=== PATIENT | male | born 1935 | race Caucasian/White ===

== ENCOUNTER 2024-11-11 15:08 | Outpatient (AMB) | payer MEDICARE, SELFPAY ==
--- NOTE | 2024-11-11 15:12 | A.OFFVIS_ITS ---
Vital Signs 11/11/24 15:14 Height 5 ft 10 in Weight 150 lb BMI 21.5 BP 97/52 L Blood Pressure Location Lt brachial Position Sitting Pulse 76 Intake Visit Reasons: gerd Intake Note: Austin presents in the office as a follow up for GERD. CC: Has GERD and issue with food getting stuck in his esophagus. He started drinking more water with meals and sometimes that helps. Always when he is eating. Hydraulic Riveter Required: No Allergies lobster Allergy (Intermediate, Verified 11/11/24 15:17) Unknown Medication List - Last Reconciled 11/11/24 by Donna Becerra CNP apixaban (Eliquis) 5 mg PO BID B-complex with vitamin C 1 tab PO DAILY turmeric mg PO vitamins A,C,M-uvpt-piedzk 4,296 mcg-226 mg-90 mg (PreserVision AREDS) 1 cap PO BID HPI HPI gerd: Details: Patient is a 88-year-old male with PMH of atrial fibrillation on Eliquis, osteoporosis, PVD and prostate cancer s/p prostatectomy 10/2004. Referred by PCP for further evaluation of GERD and dysphagia. Patient is accompanied by his Arelis. He reports chronic acid reflux for several years, worse with large evening meals and when lying down. Symptoms are described as a burning and gurgling up sensation, sometimes relieved by bitters and seltzer water. There is occasional regurgitation of solids during meals and rare nausea or vomiting only when food is obstructed. Dysphagia to solids began a couple of years ago?patient reports a sensation of food stuck , more likely with dry or large boluses of food, and improved with concurrent water intake. Small volume vomiting is described as coming from the stomach, not forceful. Symptom frequency is intermittent and episodic, without a clear trigger, and not always meal-related. Patient notes that physical maneuvers, such as arm stretching as recommended by physical therapy, seem to help passage. Also describes paroxysmal electrical chest sensation, not painful but abnormal, lasting approximately 20 minutes and resolved with belching; donna ramos evaluated in the emergency department and by cardiology with negative workup, last occurrence was in the winter or early spring of the previous year. Patient denies unintentional weight change; weight is stable, ranging from 153 to 160 pounds, with no significant recent loss. Denies blood in stool, black stools, chronic abdominal pain, or persistent nausea or vomiting. Reports recent fall with facial injury, no loss of consciousness, evaluated in urgent care and emergency department, on anticoagulation. No new neurologic or constitutional symptoms reported Social History - Diet: No special restrictions reported. Eats eggs, bread; tends to eat snacks or meals late at night, sometimes large meals. - family hx as below [facility] Medical History (Updated 11/11/24 @ 17:03 by Donna Becerra CNP) Acid reflux Dysphagia Surgical History History of esophagogastroduodenoscopy (EGD) Hx of colonoscopy Hx of tonsillectomy Hx of prostatectomy Family History Mother Cancer Father CHF (congestive heart failure) Brother Atrial fibrillation Social History Household Members: Family Alcohol intake: current Alcohol intake frequency: a few times a month Alcohol type: wine Patient Tobacco Use Status: Former Tobacco user Tobacco use type: Cigarette Substance Use Type: Marijuana Review of Systems Const Reports as per HPI ENT Reports as per HPI Card Reports as per HPI Resp Reports as per HPI GI Reports as per HPI Reports as per HPI Physical Exam Vital Signs: Last Vital Signs Pulse 76 11/11/24 15:14 BP 97/52 L 11/11/24 15:14 BMI result Body Mass Index 21.5 HEENT Other: mild edema with a dried, crusted blood-tinged abrasion on the lower lip Assessment & Plan Assessment & Plan (1) Dysphagia: Code(s): R13.10 - Dysphagia, unspecified Category: Medical Plan: Chronic reflux, intermittent dysphagia for solids, and rare regurgitation raise concern for structural or inflammatory esophageal disease. Additional Tests: - Order upper GI series to evaluate for anatomical abnormality, narrowing, obstruction - Schedule upper endoscopy for direct visualization, assessment for esophagitis, stricture, mass, and obtain biopsy as indicated - Pre-procedure cardiac clearance prior to endoscopy (patient on anticoagulation) Medications: - Famotidine (Pepcid) 20 mg by mouth as needed, prescription sent to local pharmacy; can use [id number] Education on GERD prevention : -Advised against heavy meals; encouraged small, frequent meals instead of large ones. - Instructed to remain upright for 2?3 hours after eating. - Advised to avoid late-night meals, spicy foods, caffeine, alcohol, known dietary triggers, and tight-fitting clothing. - Emphasis placed on gradual implementation of lifestyle changes to improve adherence and symptom control. (2) Acid reflux: Code(s): K21.9 - Gastro-esophageal reflux disease without esophagitis Category: Medical Qualifiers: Esophagitis presence: esophagitis presence not specified Qualified Code(s): K21.9 - Gastro-esophageal reflux disease without esophagitis Plan: as above Plan As for the Paroxysmal Electrical Chest Sensation reported, likely gastrointestinal-related event (e.g., esophageal spasm or air). Symptoms resolved with belching; cardiac etiology ruled out via emergency department and recent cardiology workup Continue with dietary and behavioral changes as above. Observe for recurrence or pattern. Follow-Up: Monitor; advise patient to seek evaluation if symptoms recur, worsen, or are associated with concerning features (chest pain, shortness of breath, syncope). RTC in 6 weeks (after imaging) or sooner as needed Time: I spent a total of 45 minutes on the date of encounter which includes: Preparing to see the patient (reviewed previous documentation, test results and medical history) Performing a medically appropriate exam and/or evaluation Ordering medications, tests, and procedures Documenting clinical information in the health record Orders: Orders FL upper GI small bowel Today K21.9 - Gastro-esophageal reflux disease without esophagitis, R13.10 - Dysphagia, unspecified Medications: New famotidine Take one tablet daily as needed for acid reflux 20 mg PO DAILY PRN 90 tabs 1RF GERD Coding Level of Care Code New Pt New Pt Level 5 (87481) Patient Type New Diagnoses Dysphagia R13.10 Gastroesophageal reflux disease, unspecified whether esophagitis present K21.9 Esophagitis presence: esophagitis presence not specified
[2024-11-11 15:14] VITALS: BP 97/52; PULSE 76; BMI 21.5
== END 2024-11-11 15:56 | disposition home or self-care (01) ==
LOC: HO.HGI 15:08
PROVIDERS: PCP Nurse Practitioner Family; Visit Provider Nurse Practitioner Family
DX: R13.10 Dysphagia, unspecified (principal); K21.9 Gastro-esophageal reflux disease without esophagitis
CPT/HCPCS: 99204

== ENCOUNTER → 2024-11-11 15:08 | Outpatient (BNVA) | payer MEDICARE, SELFPAY | PROVIDERS: PCP Nurse Practitioner Family; Visit Provider Nurse Practitioner Family | DX: K21.9 Gastro-esophageal reflux disease without esophagitis (principal) | CPT/HCPCS: 99202 ==

== ENCOUNTER 2024-12-02 08:01 | Outpatient (REF) | payer MEDICARE, SELFPAY ==
--- NOTE | ~2024-12-02 | FL_ITS ---
EXAMINATION: XR FLUOROSCOPY UPPER GI WITH AIR AND BARIUM SWALLOW CLINICAL INFORMATION: Dysphagia COMPARISON: None available. TECHNIQUE: Routine upper GI air contrast study was performed in upright and lying position. Patient was initially to 4 barium swallow, upper GI and small bowel follow-through. However patient not want small bowel follow-through is he had no complaints. FINDINGS: Lung oral administration of thick barium and effervescent granules is normal propagation of bolus from the oral cavity, pharynx, esophagus into stomach without any obstruction, narrowing or stricture. However there is a prominent cricoesophageal sphincter without obstruction. There is no extrinsic compression either. No laryngeal penetration or aspiration seen. Following oral administration of saltine crackers and thin barium there is normal propagation bolus from the oral cavity through the pharynx into esophagus. On oral administration thin saltine crackers coated with barium paste there is normal propagation of bolus from the oral cavity through the pharynx and esophagus. Thin barium was administered subsequently 2. Pulse the solid food into the stomach. There is incomplete distention of the GE junction. On placing patient supine and prone lying the course and caliber of the stomach, duodenal bulb and this CT is normal. There is a small sliding hiatal hernia with mild gastroesophageal reflux. 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 There is increased mucosal secretions in the stomach but no erosions or ulcerations seen. FLUOROSCOPY TIME: 2 minutes 11 seconds DOSE AREA PRODUCT: 36.21 uGy-m2 (microgray-meter squared) FL/FL upper GI w air w Ba Swallow IMPRESSION: Small sliding hiatal hernia with mild gastroesophageal reflux. Incomplete distention of the GE junction. No laryngeal penetration or aspiration. Decreased esophageal motility with solid food but no obstruction seen. Electronically signed by: Vance Roach MD 12/02/2024 03:25 PM EDT
== END 2024-12-02 08:02 | disposition home or self-care (01) ==
LOC: HO.XRAY 08:01
PROVIDERS: PCP Family Medicine; Visit Provider Nurse Practitioner Family
DX: R13.10 Dysphagia, unspecified (principal); K21.9 Gastro-esophageal reflux disease without esophagitis
CPT/HCPCS: 74246

== ENCOUNTER → 2024-12-02 08:03 | Outpatient (BNV) | payer MEDICARE, SELFPAY | PROVIDERS: PCP Family Medicine; Visit Provider Radiology Diagnostic Radiology | DX: K21.9 Gastro-esophageal reflux disease without esophagitis (principal) | CPT/HCPCS: 74246 ==

== ENCOUNTER 2024-12-24 12:35 | Outpatient (AMB) | payer MEDICARE, SELFPAY ==
--- NOTE | 2024-12-24 12:37 | MHC.OFFVIS ---
Vital Signs 12/24/24 12:41 Height 5 ft 10 in Weight 154 lb 5.177 oz BMI 22.1 BP 111/55 L Blood Pressure Location Lt brachial Position Sitting Pulse 84 Intake Visit Reasons: 6 wks f/u Gerd Intake Note: Austin presents in the office as a 6 week follow up for GERD. CC: States that he is having concerns of swallowing. Trimming Department Blocker Required: No Allergies lobster Allergy (Intermediate, Verified 12/24/24 12:42) Unknown HPI HPI 6 wks f/u Gerd: Details: Patient is a 88-year-old male with PMH of atrial fibrillation on Eliquis, osteoporosis, PVD and prostate cancers/p prostatectomy 10/2004. Patient is accompanied by his Arelis. Austin presents for follow-up of chronic reflux and dysphagia, with symptoms ongoing for years and most pronounced after large or late meals, particularly when lying down. The barium swallow study on December 02 revealed impaired expansion of the distal esophagus and a small sliding hiatal hernia. He reports recent improvement in swallowing and reflux symptoms through mindful eating, increased water intake with meals, and avoidance of large or late meals. He notes that burning and gurgling sensations have lessened, though occasional symptoms persist with dietary indiscretions, especially late-night eating. He has experimented with apple cider vinegar pills and bitters, which he feels provide some relief. Bread with certain toppings is identified as a trigger and is being avoided. Bowel habits are regular, with no constipation, diarrhea, or blood in stools reported. [facility] Medical History Acid reflux Dysphagia Surgical History History of esophagogastroduodenoscopy (EGD) Hx of colonoscopy Hx of tonsillectomy Hx of prostatectomy Family History Mother Cancer Father CHF (congestive heart failure) Brother Atrial fibrillation Social History Household Members: Family Alcohol intake: current Alcohol intake frequency: a few times a month Alcohol type: wine Patient Tobacco Use Status: Former Tobacco user Tobacco use type: Cigarette Substance Use Type: Marijuana Review of Systems Const Reports as per HPI ENT Reports as per HPI Card Reports as per HPI Resp Reports as per HPI GI Reports as per HPI Reports as per HPI Physical Exam Vital Signs: Last Vital Signs Pulse 84 12/24/24 12:41 BP 111/55 L 12/24/24 12:41 BMI result Body Mass Index 22.1 Const General: healthy appearing, no acute distress and well developed Nutritional Appearance: average body habitus Orientation/consciousness: patient oriented x3 HEENT Head: Yes normal to inspection, Yes normocephalic and Yes atraumatic Face and sinus: Yes normal facial exam Eyes General: appearance normal, both eyes and all related structures Neck Neck: Yes normal visual inspection Resp Effort & Inspection: normal respiratory effort, able to speak in complete sentences, no tracheal deviation and symmetric chest movement Cardio Jugular venous distension: no JVD Neuro General: patient oriented x3 Gait exam (Neuro): Normal gait present Psych Appearance: grossly normal Mental Status: mental status grossly normal Speech and movement: Normal speech and movement present Affect: normal affect Attitude: cooperative Thought process: Normal thought process present Thought content: Normal thought content present Insight: Good insight present (Psych) Judgement: Good judgement present (Psych) Results Reviewed Results Reviewed: Date of Service: 12/02/24 Procedure(s): FL upper GI w air w Ba Swallow Accession Number(s): [id number] cc: Marvin Atkins DO; Donna Becerra WATERWORKS OPERATOR~ EXAMINATION: XR FLUOROSCOPY UPPER GI WITH AIR AND BARIUM SWALLOW CLINICAL INFORMATION: Dysphagia COMPARISON: None available. TECHNIQUE: Routine upper GI air contrast study was performed in upright and lying position. Patient was initially to 4 barium swallow, upper GI and small bowel follow-through. However patient not want small bowel follow-through is he had no complaints. FINDINGS: Lung oral administration of thick barium and effervescent granules is normal propagation of bolus from the oral cavity, pharynx, esophagus into stomach without any obstruction, narrowing or stricture. However there is a prominent cricoesophageal sphincter without obstruction. There is no extrinsic compression either. No laryngeal penetration or aspiration seen. Following oral administration of saltine crackers and thin barium there is normal propagation bolus from the oral cavity through the pharynx into esophagus. On oral administration thin saltine crackers coated with barium paste there is normal propagation of bolus from the oral cavity through the pharynx and esophagus. Thin barium was administered subsequently 2. Pulse the solid food into the stomach. There is incomplete distention of the GE junction. On placing patient supine and prone lying the course and caliber of the stomach, duodenal bulb and this CT is normal. There is a small sliding hiatal hernia with mild gastroesophageal reflux. 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 There is increased mucosal secretions in the stomach but no erosions or ulcerations seen. FLUOROSCOPY TIME: 2 minutes 11 seconds DOSE AREA PRODUCT: 36.21 uGy-m2 (microgray-meter squared) FL/FL upper GI w air w Ba Swallow IMPRESSION: Small sliding hiatal hernia with mild gastroesophageal reflux. Incomplete distention of the GE junction. No laryngeal penetration or aspiration. Decreased esophageal motility with solid food but no obstruction seen. Assessment & Plan Assessment & Plan (1) Dysphagia: Code(s): R13.10 - Dysphagia, unspecified Category: Medical Qualifiers: Dysphagia type: esophageal phase Qualified Code(s): R13.19 - Other dysphagia Plan: Barium swallow shows impaired distal esophageal expansion, correlating with dysphagia. Symptoms improved with lifestyle changes but persist intermittently. EGD planned to assess for mucosal changes, inflammation, or malignancy, and to allow for possible balloon dilation if indicated. Education on risk of procedure. Awaiting cardiology clearance due to cardiac history and anticoagulation. Medications: -Famotidine 20mg PO daily recommended as initial acid suppression. -Omeprazole 20mg PO daily suggested if symptoms persist or for greater acid suppression. Education on GERD prevention : -Advised against heavy meals; encouraged small, frequent meals instead of large ones. - Instructed to remain upright for 2?3 hours after eating. - Advised to avoid late-night meals, spicy foods, caffeine, alcohol, known dietary triggers, and tight-fitting clothing. - Emphasis placed on gradual implementation of lifestyle changes to improve adherence and symptom control. (2) Acid reflux: Code(s): K21.9 - Gastro-esophageal reflux disease without esophagitis Category: Medical Qualifiers: Esophagitis presence: esophagitis presence not specified Qualified Code(s): K21.9 - Gastro-esophageal reflux disease without esophagitis Plan: Mild GERD secondary to small sliding hiatal hernia confirmed on 12/02/24 upper GI w air w Ba Swallow Additional Testing: EGD as above and managed hiatal hernia conservatively due to minimal size and intermittent symptoms. Medications:As above; famotidine or omeprazole based on symptom response. Lifestyle modifications as above Plan Follow-up after endoscopy or sooner as needed Time: I spent a total of 30 minutes on the date of encounter which includes: Preparing to see the patient (reviewed previous documentation, test results and medical history) Performing a medically appropriate exam and/or evaluation Ordering medications, tests, and procedures Documenting clinical information in the health record Medications: Changed From famotidine Take one tablet daily as needed for acid reflux 20 mg PO DAILY PRN 90 tabs 1RF GERD To famotidine Take one tablet daily for acid reflux 20 mg PO DAILY 90 tabs 1RF GERD Coding Level of Care Code Established Pt Est Pt Level 4 (15918) Patient Type Established Diagnoses Esophageal dysphagia R13.19 Dysphagia type: esophageal phase Gastroesophageal reflux disease, unspecified whether esophagitis present K21.9 Esophagitis presence: esophagitis presence not specified
--- OUTSIDE RECORDS SUMMARY | 2024-12-24 12:38 | XMS_ITS | Clinical Summary ---
Author Organization [facility] Address [address] [facility] [address] [place] [address] Phone Care Team Providers Care Aluminum Sheet Cutter Name Role Phone Angel Menchaca MD Unavailable Marvin Atkins DO Primary Care Provider Allergies No known active allergies Medications cyanocobalamin (VITAMIN B-12) 1000 MCG tablet Take 1 tablet by mouth daily. 11/30/19 16 Active CREATINE MONOHYDRATE ORAL as directed Orally A ctive Medication-Free Text Eye Vitamins Tablet, Sig: as directed Orally bid Activ e Medication-Free Text vitamin D 2,000 mg , Sig: as directed Active MAGNESIUM ORAL 1 capsule with a meal Orally Once a day Active latanoprost (XALATAN) 0.005 % ophthalmic solution Place 1 drop into each eye nightly. Active lutein 10 mg Tab [facility] withzeaxanthins 07/02/19 19 Active omega-3 fatty acids-fish oil 340-1,000 mg Cap Daily 07/02/19 19 Active ELIQUIS 5 mg tablet 2 (two) times a day. 2 09/10/19 19 Active furosemide (LASIX) 20 MG tablet Take 1 tablet (20 mg total) by mouth daily for 3 days. 3 tablet 04/14/20 22 Active Active Problems Problem Noted Date Diagnosed Date Visit for suture removal 09/10/2018 Assessment & Plan (09/10/2018 12:25 PM EDT): José Miguel presents for a suture removal-placed on 09/01/18. The # 1 suture was removed today (a running stitch). No bleeding noted. He was given wound care guidance. He will use vit E to decrease scaring. He will call if there is any other issues. He understands and agrees. Paroxysmal atrial fibrillation 07/02/2018 Assessment & Plan (09/10/2018 12:13 PM EDT): José Miguel has paroxysmal a fib and he is followed by his office agent. He is rate controlled. He is not taking the eliquis at this time but he will talk with his office agent about this. Monoclonal gammopathy 07/02/2018 Osteoporosis 07/02/2018 Assessment & Plan (06/08/2019 9:25 AM EST): This is an 83-year-old man with history of osteoporosis as early as 2006 who has not received therapy other than vitamin D and calcium supplementation. He has not had any fragility fractures. His risk factors for osteoporosis include age, tobacco use, and recently use of anticoagulants such as Eliquis. Possible history of osteoporosis it is unclear. There does not appear to be other risk factors. Review of his lab work shows that these are all within the reference range. I do not have a baseline PTH but is very unlikely that he has hyperparathyroidism since serum calcium levels are within the reference range but we can check a PTH level for baseline. He does not have a 24-hour urine calcium study done and he does take calcium supplements the question is how much and whether so getting absorbed. 24-hour urine calcium collection will tell us if he is having adequate calcium output and if he is having adequate calcium output that means that he most likely gets adequate calcium in his diet and supplements. The patient informs me that he does not want to try antiresorptive medications he is concerned about the risk of atypical femur fractures and jaw necrosis. I did inform him that the risk of this happening is very low. For atypical femur fractures the incidence is 8 out of 10,000 and is even less for jaw necrosis. Jaw necrosis occurs in people with poor dental dentition and again is custodial. In fact all the medications available antiresorptive medications even rank ligand antagonist such as Prolia can cause the same adverse effects. The only one that would not cause that is anabolic hormones such as Forteo and Tymlos which actually cause increased bone mineral density. However insurance company will not cover this medication unless he has had vertebral compression fractures or has tried other medications and failed. Fact is he has not tried any. He is done relatively well without any medication just taking calcium vitamin D supplementation he has had decreased bone mineral density over the time his last bone mineral density on 08/31/2017 showed lumbar spine T score of -3.1 proximal femur T score of -2.6 and left femur T score of -2.0. Unfortunately we cannot compare this to the bone mineral density done at [facility] on 03/31/2019 which shows a lumbar spine T score of -3.0 and femoral neck T score of -2.9. We cannot compare because the 2 different machines and the only way we can accurately compare itself is done in the same machine. I did inform him that anabolic hormones is an injection of parathyroid hormone daily for up to 2 years. Even if the medication were to be approved by his insurance carrier which I doubt the patient states he is not interested in taking this medication. At this point we discussed doing the 24-hour urine calcium studies and intact PTH levels. But the patient does not really know if he wants to do this and he wants to discuss it with his primary care physician. I told him that he can discuss it with her and she can order that he is levels. He is not interested in following up now so my suggestion is that he get done by his primary care physician and see if the results are within the reference range. Again he is not interested in antiresorptive therapy so there is no point for him to return for follow-up if it does change he can always be referred and I can go over the medications in detail. In the meantime what he can do is continue taking calcium and vitamin D continue doing strength training with small weights make sure that his home is well late and is free of any objects that can cause falls or obstructive the walkways. Normocytic anemia 07/02/2018 B12 deficiency 07/02/2018 Macular degeneration 07/02/2018 Glaucoma 07/02/2018 Cataracts, bilateral 07/02/2018 History of prostate cancer 07/02/2018 Hx of adenomatous colonic polyps 07/02/2018 Gastroesophageal reflux disease 07/02/2018 Bilateral impacted cerumen 07/02/2018 Assessment & Plan (09/10/2018 12:17 PM EDT): Austin Garcia presents for a cerumen impaction of his ears B/L. he was agreeable to a flush and this was flushed out without any complications. he will call if there is any other issues. he understands and agrees. Resolved Problems Problem Noted Date Diagnosed Date Resolved Date Monoclonal gammopathy 11/26/20172018 Encounters Date Type Department Care Team Description 11/10/2024 6:55 PM EDT - 11/10/2024 8:05 PM EDT Emergency [facility] [address] [place] [address] Discharge Disposition: Home or Self Care 11/10/2024 Procedure Pass [facility], Ct Scan [address] [address] 11/10/2024 Procedure Pass [facility], Ri Scan [address] [address] from Last 3 Months Immunizations Immunization Administration Dates Next Due Influenza Quadrivalent Preservative Free IM 03/10,06/10/2013 Influenza Quadrivalent w/ Preservative IM 2017,04/11/2017,06/20/2016 Pneumococcal conjugate PCV13 11/28/2017 Pneumococcal polysaccharide PPSV23 04/16/2009 Td (adult),2 Lf Tetanus Toxo id, PF, Adsorbed 08/04/2009 Family History Medical History Relation Comments Heart failure Father Breast cancer Mother Relation Status Comments Father Mother Social History Tobacco Use Types Packs/Day Years Used Date Smoking Tobacco: Former Smokeless Tobacco: Never Tobacco Cessation:Counseling Given: No Alcohol Use Standard Drinks/Week Comments Yes 1 (1 standard drink = 0.6 oz pur e alcohol) Education Answer Date Recorded Are you interested in more education? Not on clifton e 10/17/2022 Are you concerned about learning? Not on file 10/17/2022 No 10/17/2022 No 10/17/2022 Digital Access Answer Date Recorded No 10/30/2022 No 10/30/2022 Reliable internet access at home? Not on file 10/30/2022 Device with a working camera? Not on file Intimate Partner Violence Answer Date R ecorded Are you denied basic needs s uch as food, clothing, or medical care? No 11/10/2024 In the past 12 months have y ou been in a relationship with a person who hurts, threatens, or tries to control you? No 11/10/2024 Are you denied basic needs s uch as food, clothing, or medical care? No 11/10/2024 In the past 12 months have y ou been in a relationship with a person who hurts, threatens, or tries to control you? No 11/10/2024 Sex and Gender Information Value Date Recorded Sex Assigned at Male 09/01/2018 8:44 PM EDT Legal Sex Male 6:59 PM EST Gender Identity Male 09/01/2018 8:44 PM EDT Sexual Orientation Not on file Last Filed Vital Signs Vital Sign Reading Time Taken Comments Blood Pressure 131/73 11/10/2024 7:59 PM EDT Pulse 66 11/10/2024 7:59 PM EDT Temperature 36.1 C (97 F) 11/10/2024 7:59 PM EDT Respiratory Rate 16 11/10/2024 7:59 PM EDT Oxygen Saturation 97% 11/10/2024 7:59 PM EDT Inhaled Oxygen Concentration - - Weight 72.6 kg (160 lb) 11/10/2024 6:20 PM EDT Height 175.3 cm (5' 9 ) 11/10/2024 6:20 PM EDT Body Mass Index 23.63 11/10/2024 6:20 PM EDT Plan of Treatment Health Maintenance Due Date Last Done Comments ZOSTER VACCINES (1 of 2) 1986 RSV VACCINE (1 - 1-dose 75+ series) 11/20/2011 DEPRESSION SCREENING 07/02/2019 07/02/2018 COVID-19 VACCINE ( season) 2024 04/10/2021, 08/10/2020, 07/13/2020 CREATININE LEVEL 07/18/2025 07/18/2024, 11/2021, 11/29/2020, Additional history exists Adult Td,Tdap Booster 03/26/2031 03/26/2021, 010 PNEUMOCOCCAL VACCINES (50+ years) Completed 11/28/2017, 04/16/2009 HEPATITIS A VACCINES Aged Out No long er eligible based on patient's age to complete this topic HIB VACCINES Aged Out No longer eligi ble based on patient's age to complete this topic MENINGOCOCCAL VACCINES (ACWY) Aged Out No longer eligible based on patient's age to complete this topic MENINGOCOCCAL VACCINES (B) Aged Out N o longer eligible based on patient's age to complete this topic Medical Devices Not on file Procedures Procedure Name Priority Date/Time Associated Diagnosis Comments CT CERVICAL SPINE WITHOUT CONTRAST Routine 11/10/2024 6:[address] HEAD WITHOUT CONTRAST Routine 11/10/2024 6:30 PM EDT BASIC METABOLIC PANEL STAT 07/18/2024 5:30 PM EST from Last 3 Months or Most Recently Relevant to Health Maintenance Results * CT CERVICAL SPINE WITHOUT CONTRAST (11/10/2024 6:30 PM EDT) Anatomical Region Laterality Modality C-spine Computed Tomogra phy 11/10/2024 7:29 PM EDT Impressions 11/10/2024 7:46 PM EDT 1. No acute intracranial findings. 2. No acute fracture or traumatic malalignment of the cervical spine ATTESTATION: I, Issac Patrick as teaching physician, have reviewed the images for this case and if necessary edited the report originally created by Enrrique Lujan MD. Narrative 11/10/2024 7:[address] CERVICAL SPINE WITHOUT CONTRAST, CT HEAD WITHOUT CONTRAST Referring clinician's provided indication for this examination in Epic: * Neck trauma (Age >= 65y) TECHNIQUE: CTs of the head and cervical spine were performed without intravenous contrast using tailored dose modulation techniques. Images were reconstructed in the axial, coronal, and sagittal planes. COMPARISON: CT HEAD WITHOUT CONTRAST FINDINGS: HEAD: Brain Parenchyma: No midline shift, mass effect, parenchymal hemorrhage, or evidence of acute territorial infarct. Hypodensities in the periventricular white matter, likely a manifestation of chronic small vessel disease. Ventricular System and Extra-Axial Spaces: The ventricles and sulci are prominent. No extra-axial fluid collections. Basilar cisterns are patent. No hydrocephalus. Osseous and Extracranial Structures: No calvarial fracture or significant soft tissue hematoma. No significant paranasal sinus disease. Bilateral lens replacements. CERVICAL SPINE: Alignment and Vertebrae: Alignment is preserved. Vertebral bodies and posterior elements are intact. Discs and Endplates: Multilevel discovertebral degenerative changes most advanced at C5 to C7. Other Findings: None. Procedure Note Issac Patrick MD, PhD - 11/10/2024 CT CERVICAL SPINE WITHOUT CONTRAST, CT HEAD WITHOUT CONTRAST Referring clinician's provided indication for this examination in Epic: *Neck trauma (Age >= 65y) TECHNIQUE: CTs of the head and cervical spine were performed withoutintravenous contrast using tailored dose modulation techniques. Imageswere reconstructed in the axial, coronal, and sagittal planes. COMPARISON: CT HEAD WITHOUT CONTRAST FINDINGS: HEAD: Brain Parenchyma: No midline shift, mass effect, parenchymal hemorrhage,or evidence of acute territorial infarct. Hypodensities in theperiventricular white matter, likely a manifestation of chronic smallvessel disease. Ventricular System and Extra-Axial Spaces: The ventricles and sulci areprominent. No extra-axial fluid collections. Basilar cisterns are patent.No hydrocephalus. Osseous and Extracranial Structures: No calvarial fracture or significantsoft tissue hematoma. No significant paranasal sinus disease. Bilaterallens replacements. CERVICAL SPINE: Alignment and Vertebrae: Alignment is preserved. Vertebral bodies andposterior elements are intact. Discs and Endplates: Multilevel discovertebral degenerative changes mostadvanced at C5 to C7. Other Findings: None. IMPRESSION: 1. No acute intracranial findings. 2. No acute fracture or traumatic malalignment of the cervical spine ATTESTATION: I, Issac Patrick as teaching physician, have reviewed theimages for this case and if necessary edited the report originally createdby Enrrique Lujan MD. Melissa Pacheco PA-C IMG CT XSPECIALTY ORDERABLES Final Result * CT HEAD WITHOUT CONTRAST (11/10/2024 6:30 PM EDT) Anatomical Region Laterality Modality Head Computed Tomogra phy 11/10/2024 7:29 PM EDT Impressions 11/10/2024 7:46 PM EDT 1. No acute intracranial findings. 2. No acute fracture or traumatic malalignment of the cervical spine ATTESTATION: Farzana, Issac Patrick as teaching physician, have reviewed the images for this case and if necessary edited the report originally created by Enrrique Lujan MD. Narrative 11/10/2024 7:[address] CERVICAL SPINE WITHOUT CONTRAST, CT HEAD WITHOUT CONTRAST Referring clinician's provided indication for this examination in [facility]: * Neck trauma (Age >= 65y) TECHNIQUE: CTs of the head and cervical spine were performed without intravenous contrast using tailored dose modulation techniques. Images were reconstructed in the axial, coronal, and sagittal planes. COMPARISON: CT HEAD WITHOUT CONTRAST FINDINGS: HEAD: Brain Parenchyma: No midline shift, mass effect, parenchymal hemorrhage, or evidence of acute territorial infarct. Hypodensities in the periventricular white matter, likely a manifestation of chronic small vessel disease. Ventricular System and Extra-Axial Spaces: The ventricles and sulci are prominent. No extra-axial fluid collections. Basilar cisterns are patent. No hydrocephalus. Osseous and Extracranial Structures: No calvarial fracture or significant soft tissue hematoma. No significant paranasal sinus disease. Bilateral lens replacements. CERVICAL SPINE: Alignment and Vertebrae: Alignment is preserved. Vertebral bodies and posterior elements are intact. Discs and Endplates: Multilevel discovertebral degenerative changes most advanced at C5 to C7. Other Findings: None. Procedure Note Issac Patrick MD, PhD - 11/10/2024 CT CERVICAL SPINE WITHOUT CONTRAST, CT HEAD WITHOUT CONTRAST Referring clinician's provided indication for this examination in [facility]: *Neck trauma (Age >= 65y) TECHNIQUE: CTs of the head and cervical spine were performed withoutintravenous contrast using tailored dose modulation techniques. Imageswere reconstructed in the axial, coronal, and sagittal planes. COMPARISON: CT HEAD WITHOUT CONTRAST FINDINGS: HEAD: Brain Parenchyma: No midline shift, mass effect, parenchymal hemorrhage,or evidence of acute territorial infarct. Hypodensities in theperiventricular white matter, likely a manifestation of chronic smallvessel disease. Ventricular System and Extra-Axial Spaces: The ventricles and sulci areprominent. No extra-axial fluid collections. Basilar cisterns are patent.No hydrocephalus. Osseous and Extracranial Structures: No calvarial fracture or significantsoft tissue hematoma. No significant paranasal sinus disease. Bilaterallens replacements. CERVICAL SPINE: Alignment and Vertebrae: Alignment is preserved. Vertebral bodies andposterior elements are intact. Discs and Endplates: Multilevel discovertebral degenerative changes mostadvanced at C5 to C7. Other Findings: None. IMPRESSION: 1. No acute intracranial findings. 2. No acute fracture or traumatic malalignment of the cervical spine ATTESTATION: IIssac as teaching physician, have reviewed theimages for this case and if necessary edited the report originally createdby Enrrique Lujan MD. Melissa Pacheco PA-C IMG CT HEAD/NECK Final Resul t * (ABNORMAL) Basic metabolic panel (07/18/2024 5:30 PM EST) SODIUM 136 133 - 146 mmol/L [facility] CHLORIDE 102 96 - 108 mmol/L [facility] POTASSIUM 4.7 3.3 - 5.1 mmol/L [facility] CO2 25 21 - 35 mmol/L [facility] BUN 28(H) 6 - 19 mg/dL [facility] CREATININE 1.00 0.5 - 1.5 mg/dL [facility] GLUCOSE 94 70 - 99 mg/dL [facility] CALCIUM 9.5 8.4 - 10.3 mg/dL [facility] EGFR 73 >59 mL/min/1.7 3m2 [facility] Comment:Estimated glomerular filtration rate calculated using the CKD-EPI refit equation. ANION GAP 14 10 - 20 mmol/L [facility] Blood 07/18/2024 5:30 PM EST 07/18/2024 5:33 PM EST Hiro Arroyo MD LAB BLOOD ORDERABLES Final Result [address] [address] from Last 3 Months or Most Recently Relevant to Health Maintenance Insurance MEDICARE PPO BLUE REPLACEMENT MEDICARE PPO BLUE REPLACEMENT MEDICARE PPO [place] [address] [place] [address] MEDICARE PPO BLUE REPLACEMENT [facility] MEDICARE PPO BLUE REPLACEMENT [facility] MEDICARE PPO BLUE REPLACEMENT MEDICARE PPO BLUE REPLACEMENT MEDICARE PPO BLUE REPLACEMENT MEDICARE PPO BLUE REPLACEMENT [place] MED[place] BLUE REPLACEMENT Care Teams Aluminum Sheet Cutter Relationship Specialty Start Date End Date Marvin Atkins DO [address] [place] [id number] PCP - General Family Medicine 07/18/24 Angel Menchaca MD [email or web address] Primary Oncologist Hematology and Oncology 11/28/20 Additional Source Comments The information contained in this document represents components of the legal health record. It is not the complete legal health record.[facility]
[2024-12-24 12:41] VITALS: BP 111/55; PULSE 84; BMI 22.1
== END 2024-12-24 13:16 | disposition home or self-care (01) ==
LOC: HO.HGI 12:36
PROVIDERS: PCP Nurse Practitioner Family; Visit Provider Nurse Practitioner Family
DX: R13.19 Other dysphagia (principal); K21.9 Gastro-esophageal reflux disease without esophagitis
CPT/HCPCS: 99214

== ENCOUNTER → 2024-12-24 12:35 | Outpatient (BNVA) | payer MEDICARE, SELFPAY | PROVIDERS: PCP Nurse Practitioner Family; Visit Provider Nurse Practitioner Family | DX: K21.9 Gastro-esophageal reflux disease without esophagitis (principal); R13.19 Other dysphagia | CPT/HCPCS: 99212 ==

== ENCOUNTER 2025-02-08 08:12 | Day surgery (SDC) | payer MEDICARE, SELFPAY ==
--- OUTSIDE RECORDS SUMMARY | 2025-01-06 15:42 | XMS_ITS | Clinical Summary ---
Author Organization [facility] Address [address] [facility] [address] [facility] [address] [place] [address] Care Team Providers Care Sql Engineer Name Role Phone Unavailable Primary Care Provider Unavailabl e Allergies No known active allergies Medications apixaban (Eliquis) 5 mg tablet twice a day. 09/10/19 19 Active cyanocobalamin (Vitamin B-12) 1,000 mcg tablet Take 1 tablet by mouth in the morning. 11/30/19 16 Active lutein 10 mg tablet [employer] withzeaxanthins 07/02/19 19 Active omega-3 fatty acids-fish oil 340-1,000 mg capsule Daily 07/02/19 19 Active vit A/vit C/vit E/zinc/copper (PRESERVISION AREDS ORAL) 0 Refills, Maintenance, 06/19/21 9:11:00 EST, Partial fill upon patient request if the prescription is for a schedule II opioid drug. 06/19/19 22 Active ergocalciferol , vitamin D2, (VITAMIN D2 ORAL) Take by mouth. Activ e TURMERIC ORAL Take by mouth. 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/17/2021 Paroxysmal atrial fibrillation (Multi-HCC) 09/17 Carcinoma of prostate (Multi-HCC) 09/17/2021 Family History Medical History Relation Name Comments Macular degeneration Sister Relation Name Status Comments Sister Social History Tobacco Use Types Packs/Day Years Used Date Smoking Tobacco: Former Sex and Gender Information Value Date Recorded Sex Assigned at Not on file Legal Sex Male 1:59 AM EST Gender Identity Not on file Sexual Orientation Not on file Plan of Treatment Health Maintenance Due Date Last Done Comments Zoster Vaccines (1 of 2) 1985 COVID-19 Vaccine ( season) 2024 09/29/2021, 04/10/2021, 08/10/2020, Additional history exists Depression Screening 06/09/2024 Influenza Vaccine (#1) 2025 , 03/10/2020, 04/21/2019, Additional history exists DTaP/Tdap/Td Vaccines (2 - Td or Tdap) 03/26/2031 03/26/2021, 08/04/2009 Pneumococcal Vaccine: 50+ Years Completed 11/28/2017, 04/26/2009, 04/16/2009 HIB Vaccines Aged Out No longer eligi ble based on patient's age to complete this topic HPV Vaccines Aged Out No longer eligi ble based on patient's age to complete this topic Hepatitis A Vaccines Aged Out No long er eligible based on patient's age to complete this topic Hepatitis B Vaccines Aged Out No long er eligible based on patient's age to complete this topic IPV Vaccines Aged Out No longer eligi ble based on patient's age to complete this topic Meningococcal B Vaccine Aged Out No l onger eligible based on patient's age to complete this topic Meningococcal Vaccine Aged Out No sophie edgar eligible based on patient's age to complete this topic Rotavirus Vaccines Aged Out No longer eligible based on patient's age to complete this topic Insurance BLUE CROSS MEDICARE REPLACEMENT PPO
--- OUTSIDE RECORDS SUMMARY | 2025-01-06 15:42 | XMS_ITS | Clinical Summary ---
Author Organization [facility] Address [address] [place] [address] Phone Care Team Providers Care Packer And Carry Out Name Role Phone Angel Menchaca MD Unavailable [...] eye nightly. Active lutein 10 mg Tab [facility] withzeaxanthins 07/02/19 19 Active omega-3 fatty acids-fish [...] fib and he is followed by his burrer marker axle. He is rate controlled. He is not taking the eliquis at this time but he will talk with his burrer marker axle about this. Monoclonal gammopathy 07/02/2018 Osteoporosis 07/02/2018 [...] with poor dental dentition and again is intermediate. In fact all the medications available antiresorptive [...] to the bone mineral density done at [facility] on 03/31/2019 which shows a lumbar spine [...] 8:05 PM EDT Emergency [facility] [address] [place] [address] Discharge Disposition: Home or Self Care 11/10/2024 Procedure Pass [facility], [place] Scan [address] [address] 11/10/2024 Procedure Pass [facility] [place] Scan [address] [address] from Last 3 Months Immunizations Immunization Administration [...] clinician's provided indication for this [facility]: * Neck trauma (Age >= 65y) TECHNIQUE: [...] clinician's provided indication for this examination in [facility]: *Neck trauma (Age >= 65y) TECHNIQUE: CTs [...] EST) SODIUM 136 133 - 146 mmol/L [facility] CHLORIDE 102 96 - 108 mmol/L [facility] POTASSIUM 4.7 3.3 - 5.1 mmol/L [facility] CO2 25 21 - 35 mmol/L [facility] BUN 28(H) 6 - 19 mg/dL [facility] CREATININE 1.00 0.5 - 1.5 mg/dL [facility] GLUCOSE 94 70 - 99 mg/dL [facility] CALCIUM 9.5 8.4 - 10.3 mg/dL [facility] EGFR 73 >59 mL/min/1.7 3m2 [facility] Comment:Estimated glomerular filtration rate calculated using the CKD-EPI refit equation. ANION GAP 14 10 - 20 mmol/L [facility] Blood 07/18/2024 5:30 PM EST 07/18/2024 5:33 PM EST Hiro Arroyo MD LAB BLOOD ORDERABLES Final Result [address] [address] from Last 3 Months or Most Recently Relevant to Health Maintenance Insurance MEDICARE PPO BLUE REPLACEMENT MEDICARE PPO BLUE REPLACEMENT MEDICARE PPO BLUE REPLACEMENT [address] [place] [address] MEDICARE PPO BLUE REPLACEMENT [facility] MEDICARE PPO BLUE REPLACEMENT [facility] MEDICARE PPO BLUE REPLACEMENT MEDICARE PPO BLUE REPLACEMENT MEDICARE PPO BLUE REPLACEMENT MEDICARE PPO BLUE REPLACEMENT [place] [place] BLUE REPLACEMENT Care Teams Packer And Carry Out Relationship Specialty Start Date End Date Marvin Atkins DO [address] [place] [id number] PCP - General Family Medicine 07/18/24 Angel Menchaca MD [email or web address] Primary Oncologist Hematology and Oncology 11/28/20 Additional Source Comments The information contained in this document represents components of the legal health record. It is not the complete legal health record.[facility]
[2025-02-03 15:00] VITALS: BMI 22.1
--- NOTE | 2025-02-04 11:33 | HO.ANESPROP2 ---
Documented by User: Eugenie Steiner NP 02/04/25 12:09 HPI - Anesthesia Eval Consult details Narrative: 89 yr old male for upper endoscopy Atrial fibrillation: started on digoxin at October 2024 visit; maria cis; follows with [facility] cardiology, was optimized for endoscopy on 11/17/24, okayed to hold Eliquis 48 hrs prior PMFSH Active Problems Active Problems: All Active Problems (Updated 02/03/25 @ 14:59 by Homa London RN) Acid reflux (Acute) Dysphagia (Acute) Past Medical History Medical History (Updated 02/03/25 @ 14:59 by Homa London RN) Mitral regurgitation PVD (peripheral vascular disease) Prostate cancer Osteoporosis Monoclonal gammopathy Macular degeneration Glaucoma Atrial fibrillation Acid reflux Dysphagia Family History Family History Mother Cancer Father CHF (congestive heart failure) Brother Atrial fibrillation Surgical History Surgical History History of esophagogastroduodenoscopy (EGD) Hx of colonoscopy Hx of tonsillectomy Hx of prostatectomy Social History Social History Household Members: Family Alcohol intake: current Alcohol intake frequency: a few times a month Alcohol type: wine Patient Tobacco Use Status: Former Tobacco user Tobacco use type: Cigarette Use of substances other than those prescribed or required for medical reasons: No Substance Use Type: Marijuana Have you been hit, kicked, punched, or otherwise hurt by someone within the past year? If so, by whom?: No Are you DNR?: No Advance Directives: No Advance Directives Information Provided: Yes Poor oral hygiene: No Meds Allergies Allergy/AdvReac Type Severity Reaction Status Date / Time lobster Allergy Intermediate Unknown Verified 12/24/24 12:42 Home Medications ?Medication ?Instructions ?Recorded ?Confirmed ?Last Taken ?Type apixaban 5 mg tablet (Eliquis) 5 mg PO BID 11/04/24 02/03/25 Unknown History B-complex with vitamin C 1 tab PO DAILY 11/11/24 02/03/25 Unknown History turmeric 400 mg capsule 400 mg PO DAILY 11/11/24 02/03/25 Unknown History vitamins A,C,E-djmr-dzbfhb 4,296 1 cap PO BID 11/11/24 02/03/25 Unknown History mcg-226 mg-90 mg capsule (PreserVision AREDS) digoxin 125 mcg (0.125 mg) tablet 125 mcg PO DAILY 02/03/25 02/03/25 Unknown History Exam Height,Weight and Vital Signs: Height 5 ft 10 in Weight 69.853 kg Narrative Narrative: Myocardial Perfusion study 05/2024 The is an inferior defect at rest that improves after maximal treadmill exercise, presumably related to diaphragmatic soft tissue attentuation. Otherwise update is normal without evidence of myocardial scar or ischemia. There is normal ventricular function with ejection fraction >70@ at rest and after stress. Echo October 2023 Left ventricular size normal Borderline concentric left ventricular hypertrophy Unable to assess diastolic dysfunction due to atrial fibrillation. Normal LV systolic function. EF 55-665% There are no definite regional wall motion abnormalities. Right ventricle is dilated. Right ventricular systolic function is normal. The pulmonary artery systolic pressure estimation is 25-30 mmHg. No significant change compared to study 07/11/22 EKG 02/04/25 Atrial fibrillation; rate 10/2024 When compared with ECG 10/14/23 no significant change was found Documented by User: Abe Grady MD 02/08/25 08:41 [facility] Past Medical History Medical History (Updated 02/03/25 @ 14:59 by Homa London RN) Mitral regurgitation PVD (peripheral vascular disease) Prostate cancer Osteoporosis Monoclonal gammopathy Macular degeneration Glaucoma Atrial fibrillation Acid reflux Dysphagia Family History Family History Mother Cancer Father CHF (congestive heart failure) Brother Atrial fibrillation Family history of problems with anesthesia: No Surgical History Surgical History History of esophagogastroduodenoscopy (EGD) Hx of colonoscopy Hx of tonsillectomy Hx of prostatectomy History of Problems with Anesthesia: No Social History Social History Household Members: Family Alcohol intake: current Alcohol intake frequency: a few times a month Alcohol type: wine Patient Tobacco Use Status: Former Tobacco user Tobacco use type: Cigarette Use of substances other than those prescribed or required for medical reasons: No Substance Use Type: Marijuana Have you been hit, kicked, punched, or otherwise hurt by someone within the past year? If so, by whom?: No Are you DNR?: No Advance Directives: No Advance Directives Information Provided: Yes Poor oral hygiene: No Meds Allergies Allergy/AdvReac Type Severity Reaction Status Date / Time lobster Allergy Intermediate Unknown Verified 12/24/24 12:42 Home Medications ?Medication ?Instructions ?Recorded ?Confirmed ?Last Taken ?Type apixaban 5 mg tablet (Eliquis) 5 mg PO BID 11/04/24 02/03/25 Unknown History B-complex with vitamin C 1 tab PO DAILY 11/11/24 02/03/25 Unknown History turmeric 400 mg capsule 400 mg PO DAILY 11/11/24 02/03/25 Unknown History vitamins A,C,U-fjcp-azhhnb 4,296 1 cap PO BID 11/11/24 02/03/25 Unknown History mcg-226 mg-90 mg capsule (PreserVision AREDS) digoxin 125 mcg (0.125 mg) tablet 125 mcg PO DAILY 02/03/25 02/03/25 Unknown History Exam Airway Mallampati Class: I TM Dist: >3cm Neck ROM: Full Loose/Missing/Broken Teeth: No Heart: ok Lungs: ok Assessment and Plan Assessment Anesthesia Assessment: Anesthesia Plan Discussed and Chart Reviewed Final Anesthetic Review Family History of Problems with Anesthesia: No History of Problems with Anesthesia: No NPO: Yes ASA Class: III and IV Final Preanesthetic Review: No Changes in Pt Med Stat, Meds/Allgs Chart Reviewed, Consent Obtained/Reviewed and Anes Risks/Benef Reviewed Patient Risk: Intermediate Procedure Risk: Intermediate Anesthetic Plan Anesthetic Plan: Agree w/ Assess. and Plan and TIVA Disposition: Standard PACU
[2025-02-08 08:29] VITALS: BP 135/76; PULSE 65; RESP 14; TEMP 36.4; O2SAT 99; BMI 23.0
[2025-02-08] MEDS: Lactated Ringers 1,000 ML 100 ML IVCONT (08:50)
--- NOTE | 2025-02-08 08:52 | MHC.SHP ---
Pre-Procedural Eval Section A - 24 Hr Update-Section A only Date of Service: 02/08/25 Section B - Complete if H&P > 30 days Chief Complaint: gerd,dysphagia Relevant Family History (Specify if Yes): No Relevant Social History: None Present Medications: see Short Stay Collaborative assessment Medical History: Significant History (Acid reflux Dysphagia) History of Previous Operations: Relevant previous surgery/procedure and date(s) (History of esophagogastroduodenoscopy (EGD) Hx of colonoscopy Hx of tonsillectomy Hx of prostatectomy) Allergies: Allergies Allergy/AdvReac Type Severity Reaction Status Date / Time lobster Allergy Intermediate Unknown Verified 12/24/24 12:42 Review of Systems Sugical H&P ROS: Negative: Constitution, Cardiovascular, Respiratory, Neurological, Psychiatric, Hem-Onc, Allergic/Immunologic, Gastrointestinal, Genitourinary, Musculoskeletal, Integumentary, Endocrine and Eyes/Ears/Nose/Throat Exam Surgical H&P Exam: Normal: HEENT, Normal: Heart, Normal: Lungs, Normal: Extremities, Normal: Abdomen, Normal: Skin and Normal: Neurological Plan Diagnosis/Plan: Unchanged I have reviewed the history and physical and performed a pertinent physical examination on my patient. No changes have occurred unless specified. Time Spent With Patient Time: Total time managing care of this patient today ____ minutes.
--- NOTE | 2025-02-08 09:15 | W.PM.OPN ---
Operative Note Operative Note Date of Service: 02/08/25 Narrative: Procedure Description: EGD Indication: dysphagia Anesthesia: MAC FLEXIBLE TRANSORAL UPPER GASTROINTESTINAL ENDOSCOPY UPPER ENDOSCOPY Consent: Indications for the procedure and potential complications of bleeding, perforation, reaction to medications and missed diagnosis were discussed with the patient and informed consent was obtained. Instrument: Olympus GIF H 190 J mid size upper endoscope Monitoring: Vital signs and clinical assessment, continuous EKG monitoring, Pulse oximetry, Carbon Dioxide monitoring and blood pressure monitoring were done throughout the procedure. Procedure: The patient was placed in the left lateral decubitis position and pre-procedure medications were administered and a bite block was placed. The endoscope was inserted into the mouth and advanced under direct vision to the third part of duodenum. A careful inspection was made as the upper endoscope was withdrawn including a retroflexed examination of the proximal stomach; Findings and interventions are described below. Findings: Larynx:normal Esophagus: GE junction at 37 cm, diaphragm hiatus at 40 cm, consistent with 3 cm fixed hiatal hernia, with schatzki ring, dilated with balloon from 15 to 18 mm in sequential fashion with suprficial tears noted. Erosive streaks also noted at GEJ with tertiary contractions and boggy mucosa. Stomach: patchy erythema . Biopsies were obtained. Grade 3 flap valve on retroflexed examination of the cardia. Duodenum: Normal bulb and descending duodenum, bx taken Intervention: Biopsies as noted above, balloon dilation Impression/Findings: gastritis erosive esophagitis hiatal hernia schatzki ring PLAN: commence PPI, stop pepcid can restart apixiban tomorrow GERD precautions
[2025-02-08 09:18] VITALS: BP 104/67; PULSE 87; RESP 12; TEMP 36.1; O2SAT 97
[2025-02-08 09:33] VITALS: BP 94/64; PULSE 67; RESP 16; O2SAT 96
[2025-02-08 09:48] VITALS: BP 123/67; PULSE 69; RESP 16; TEMP 36.5; O2SAT 100
== END 2025-02-08 10:33 | disposition home or self-care (01) ==
PROVIDERS: PCP Family Medicine; Visit Provider Internal Medicine Gastroenterology
PROC: 0DJ08ZZ Inspection of Upper Intestinal Tract, Via Natural or Artificial Opening Endoscopic (ICD-10-PCS; CPT 43235; principal; 2025-02-08 09:00)
DX: R13.10 Dysphagia, unspecified (principal); K21.9 Gastro-esophageal reflux disease without esophagitis; K22.2 Esophageal obstruction; K44.9 Diaphragmatic hernia without obstruction or gangrene; K20.80 Other esophagitis without bleeding; K29.50 Unspecified chronic gastritis without bleeding; M81.0 Age-related osteoporosis without current pathological fracture; I73.9 Peripheral vascular disease, unspecified; I48.91 Unspecified atrial fibrillation; Z79.01 Long term (current) use of anticoagulants; Z79.899 Other long term (current) drug therapy; Z90.79 Acquired absence of other genital organ(s); Z91.013 Allergy to seafood; Z87.891 Personal history of nicotine dependence
CPT/HCPCS: 43249; 43239; 88305; 88342; C1726; J2003; J2704

== ENCOUNTER → 2025-02-08 08:12 | Outpatient (BNV) | payer MEDICARE, SELFPAY | PROVIDERS: PCP Family Medicine; Visit Provider Internal Medicine Gastroenterology | DX: K22.2 Esophageal obstruction (principal); K44.9 Diaphragmatic hernia without obstruction or gangrene; K57.90 Diverticulosis of intestine, part unspecified, without perforation or abscess without bleeding; R13.10 Dysphagia, unspecified | CPT/HCPCS: 43239; 43249 ==

== ENCOUNTER 2025-02-24 11:37 | Outpatient (AMB) | payer MEDICARE, SELFPAY ==
--- NOTE | 2025-02-24 11:49 | MHC.OFFVIS ---
Vital Signs 02/24/25 11:50 Height 5 ft 10 in Weight 160 lb BMI 23.0 BP 106/63 Blood Pressure Location Lt brachial Position Sitting Pulse 67 Pulse Oximetry (%) 96 Oxygen Delivery Method Room Air Intake Visit Reasons: s/p EGD [place] Intake Note: Patient follow up for GERD and EGD results Patient denies any GI issues. Still Cleaner Tube Required: No Accompanied by: Spouse Allergies lobster Allergy (Intermediate, Verified 12/24/24 12:42) Unknown famotidine Adverse Reaction (Mild, Verified 02/24/25 12:17) Dizziness Medication List - Last Reconciled 02/24/25 by Donna Becerra CNP apixaban (Eliquis) 5 mg PO BID B-complex with vitamin C 1 tab PO DAILY digoxin 125 mcg PO DAILY esomeprazole magnesium 20 mg PO DAILY turmeric 400 mg PO DAILY vitamins A,C,J-utsb-fbwyut 4,296 mcg-226 mg-90 mg (PreserVision AREDS) 1 cap PO BID HPI HPI s/p EGD [place]: Details: Patient is a 88-year-old male with PMH of atrial fibrillation on Eliquis, osteoporosis, PVD and prostate cancers/p prostatectomy 10/2004. Patient is accompanied by his for follow up post-EGD (upper endoscopy) to review results, clarify management, and address questions re: medication, symptom control, and lifestyle. Pt notes no recurrence of food ?getting stuck? since EGD with dilation. More mindful re: diet selection and increased water intake. No new dysphagia, choking, or sensation of obstruction. Pt discontinued famotidine d/t dizziness; esomeprazole only started recently and taken inconsistently, but no adverse effects noted. No c/o overt reflux, though some mild nighttime sx and occasional issues with large or late meals. No acute GI events, hospitalizations, or urgent care visits since last eval [facility] Medical History (Updated 02/24/25 @ 17:30 by Donna Becerra CNP) Mitral regurgitation PVD (peripheral vascular disease) Prostate cancer Osteoporosis Monoclonal gammopathy Macular degeneration Glaucoma Atrial fibrillation Acid reflux Dysphagia Surgical History History of esophagogastroduodenoscopy (EGD) Hx of colonoscopy Hx of tonsillectomy Hx of prostatectomy Family History Mother Cancer Father CHF (congestive heart failure) Brother Atrial fibrillation Social History Household Members: Family Alcohol intake: current Alcohol intake frequency: a few times a month Alcohol type: wine Patient Tobacco Use Status: Former Tobacco user Tobacco use type: Cigarette Substance Use Type: Marijuana Review of Systems Const Reports as per HPI ENT Reports as per HPI Card Reports as per HPI Resp Reports as per HPI GI Reports as per HPI Reports as per HPI Physical Exam Vital Signs: Last Vital Signs Pulse 67 02/24/25 11:50 BP 106/63 02/24/25 11:50 Pulse Ox 96 02/24/25 11:50 Oxygen Delivery Method Room Air 02/24/25 11:50 BMI result Body Mass Index 23.0 Const General: healthy appearing, no acute distress and well developed Nutritional Appearance: average body habitus Orientation/consciousness: patient oriented x3 HEENT Head: Yes normal to inspection, Yes normocephalic and Yes atraumatic Face and sinus: Yes normal facial exam Eyes General: appearance normal, both eyes and all related structures Neck Neck: Yes normal visual inspection Resp Effort & Inspection: normal respiratory effort, able to speak in complete sentences, no tracheal deviation and symmetric chest movement Cardio Jugular venous distension: no JVD Neuro General: patient oriented x3 Gait exam (Neuro): Normal gait present Psych Appearance: grossly normal Mental Status: mental status grossly normal Speech and movement: Normal speech and movement present Affect: normal affect Attitude: cooperative Thought process: Normal thought process present Thought content: Normal thought content present Insight: Good insight present (Psych) Judgement: Good judgement present (Psych) Results Reviewed Results Reviewed: Operative Note Date of Service: 02/08/25 Narrative: Procedure Description: EGD Indication: dysphagia Anesthesia: MAC FLEXIBLE TRANSORAL UPPER GASTROINTESTINAL ENDOSCOPY UPPER ENDOSCOPY Consent: Indications for the procedure and potential complications of bleeding, perforation, reaction to medications and missed diagnosis were discussed with the patient and informed consent was obtained. Instrument: Olympus GIF H 190 J mid size upper endoscope Monitoring: Vital signs and clinical assessment, continuous EKG monitoring, Pulse oximetry, Carbon Dioxide monitoring and blood pressure monitoring were done throughout the procedure. Procedure: The patient was placed in the left lateral decubitis position and pre-procedure medications were administered and a bite block was placed. The endoscope was inserted into the mouth and advanced under direct vision to the third part of duodenum. A careful inspection was made as the upper endoscope was withdrawn including a retroflexed examination of the proximal stomach; Findings and interventions are described below. Findings: Larynx:normal Esophagus: GE junction at 37 cm, diaphragm hiatus at 40 cm, consistent with 3 cm fixed hiatal hernia, with schatzki ring, dilated with balloon from 15 to 18 mm in sequential fashion with suprficial tears noted. Erosive streaks also noted at GEJ with tertiary contractions and boggy mucosa. Stomach: patchy erythema . Biopsies were obtained. Grade 3 flap valve on retroflexed examination of the cardia. Duodenum: Normal bulb and descending duodenum, bx taken Intervention: Biopsies as noted above, balloon dilation Impression/Findings: gastritis erosive esophagitis hiatal hernia schatzki ring PLAN: commence PPI, stop pepcid can restart apixiban tomorrow GERD precautions PATHOLOGY Collected: 02/08/25 Location: [facility] Received: 02/08/25 Diagnosis A. Duodenum, biopsy: Duodenal mucosa with preserved villi and no specific change. B. Stomach, biopsy: Gastric antral and body mucosa with minimal chronic inactive gastritis; negative for H. pylori, intestinal metaplasia and dysplasia. Clinical History Pre-Op Dx: GERD, esophagitis Post-Op Dx: Schatzki's ring, erosive esophagitis, gastritis, hiatal hernia Assessment & Plan Assessment & Plan (1) Acid reflux: Comment: 02/08/25 EGD-gastritis, erosive esophagitis, hiatal hernia, schatzki ring post dilation. Code(s): K21.9 - Gastro-esophageal reflux disease without esophagitis Category: Medical Qualifiers: Esophagitis presence: esophagitis presence not specified Qualified Code(s): K21.9 - Gastro-esophageal reflux disease without esophagitis Plan: Improving?no recurrent dysphagia, heartburn, or alarm sx. Initial inconsistent use of esomeprazole; education on correct timing to improve efficacy. Famotidine d/c d/t dizziness (added to allergy list). Dilation performed at EGD Additional Testing: None at this time?repeat EGD only if recurrence of sx or change in clinical picture. Medications: -Continue esomeprazole 20 mg PO qAM, on empty stomach, 30-60 min before 1st meal. Important for mucosal healing, symptom control, prevent progression. Monitor for GI, metabolic, or MSK side effects. -Famotidine d/c (allergy/sensitivity?dizziness). Lifestyle Recommendations: -Reinforce: Small VS large meals; avoid late eating; upright x2hr post-meal; avoid dietary triggers (acidic/spicy/fatty foods, chocolate, caffeine, alcohol, carbonation). -Hydration with water; avoid carbonated beverages as possible trigger. -Chew thoroughly, avoid large boluses. Referrals / Coordination of Care: None indicated at present. Follow-Up Plan: -RTC in 6 months for reassessment or sooner PRN with return/worsening of sx (dysphagia, odynophagia, significant reflux or GI bleed). -Observe; instructions for earlier contact if sx return. Plan Follow-up in 6 months or sooner as needed Time: I spent a total of 30 minutes on the date of encounter which includes: Preparing to see the patient (reviewed previous documentation, test results and medical history) Performing a medically appropriate exam and/or evaluation Ordering medications, tests, and procedures Documenting clinical information in the health record Medications: Discontinued famotidine Take one tablet daily for acid reflux Discontinued Reason: Patient no longer taking 20 mg PO DAILY 90 tabs 1RF GERD Coding Level of Care Code Established Pt Est Pt Level 3 (00325) Patient Type Established Diagnoses Gastroesophageal reflux disease, unspecified whether esophagitis present K21.9 Esophagitis presence: esophagitis presence not specified
[2025-02-24 11:50] VITALS: BP 106/63; PULSE 67; O2SAT 96; BMI 23.0
--- OUTSIDE RECORDS SUMMARY | 2025-02-24 13:57 | XMS_ITS | Encounter Summary ---
Author Organization [facility] Address [address] [place] [address] Phone Care Team Providers Care Redevelopment Manager Name Role Phone Liliana Pittman MD Primary Care Provider Pallavi Corey MD Primary Care Provider [phone] Angel Menchaca MD Unavailable Marvin Atkins DO Primary Care Provider [phone] Encounter Details Date Type Department Care Team (Latest Contact Info) Description 11/27/2018 Transcribe Orders [facility] [address] [place] [address] Rosa Vargas DO [address] [place] [address] [email or web address] Medical Screening for unspecified condition (Primary Dx) Social History Tobacco Use Types Packs/Day Years Used Date Smoking Tobacco: Former Smokeless Tobacco: Never Alcohol Use Standard Drinks/Week Comments Yes 1 (1 standard drink = 0.6 oz pur e alcohol) Sex and Gender Information Value Date Recorded Sex Assigned at Male 09/01/2018 8:44 PM EDT Legal Sex Male 6:59 PM EST Gender Identity Male 09/01/2018 8:44 PM EDT Sexual Orientation Not on file documented as of this encounter Plan of Treatment Not on file documented as of this encounter Visit Diagnoses Diagnosis Screening for unspecified condition- Primary documented in this encounter Additional Health Concerns Assessment Noted Time PHQ-2 Depression Total Score: 0 07/02/19 19 1:46 PM EST documented as of this encounter Care Teams Redevelopment Manager Relationship Specialty Start Date End Date Liliana Pittman MD [email or web address] PCP - General Family Medicine 03/17/18 05/23/19 Pallavi Corey MD [address] [place] [address] [email or web address] PCP - General Family Medicine 05/24/19 07/17/24 Marvin Atkins DO [address] [address] PCP - General Family Medicine 07/18/24 Angel Menchaca MD [address] [place] [address] [email or web address] Primary Oncologist Hematology and Oncology 11/28/20 documented as of this encounter Additional Source Comments The information contained in this document represents components of the legal health record. It is not the complete legal health record.[facility]
--- OUTSIDE RECORDS SUMMARY | 2025-02-24 13:57 | XMS_ITS | Clinical Summary ---
Author Organization [facility] Address [address] [place] [address] Care Team Providers Care Assembler [employer] Name Role Phone Unavailable Primary Care Provider Unavailabl e Allergies No known active allergies Medications apixaban (Eliquis) 5 mg tablet twice a day. 09/10/19 19 Active cyanocobalamin (Vitamin B-12) 1,000 mcg tablet Take 1 tablet by mouth in the morning. 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 Paroxysmal atrial fibrillation 09/17/2021 Carcinoma of prostate 09/17/2021 Family History Medical History Relation Name [...] Comments Zoster Vaccines (1 of 2) 1986 Depression Screening 06/09/2024 COVID-19 Vaccine ( season) 2025 09/29/2021, 04/10/2021, 08/10/2020, Additional history exists Influenza Vaccine (#1) 2025 , 03/10/2020, 04/21/2019, Additional history exists DTaP/Tdap/Td Vaccines (2 - Td or Tdap) 03/26/2031 03/26/2021, 08/04/2009 Pneumococcal Vaccine: 50+ Years Completed 11/28/2017, 04/26/2009, 04/16/2009 Pneumococcal Vaccine: Pediatrics (0 to 5 Years) and At-Risk Patients (6 to 49 Years) Discontinued 11/28/2017, 04/26/2009, 04/16/2009 HIB Vaccines Aged Out [...] patient's age to complete this topic Insurance [facility] MEDICARE REPLACEMENT PPO
--- OUTSIDE RECORDS SUMMARY | 2025-02-24 13:57 | XMS_ITS | Clinical Summary ---
Author Organization [facility] Address [address] [place] [address] Phone Care Team Providers Care Financial Institution President Name Role Phone Angel Menchaca MD Unavailable [...] eye nightly. Active lutein 10 mg Tab [facility] withzeaxanthins 07/02/19 19 Active omega-3 fatty acids-fish [...] fib and he is followed by his signs cleaner. He is rate controlled. He is not taking the eliquis at this time but he will talk with his signs cleaner about this. Monoclonal gammopathy 07/02/2018 Osteoporosis 07/02/2018 [...] with poor dental dentition and again is fpc. In fact all the medications available antiresorptive [...] to the bone mineral density done at [facility] on 03/31/2019 which shows a lumbar spine [...] Diagnosed Date Resolved Date Monoclonal gammopathy 11/26/20172018 Immunizations Immunization Administration Dates Next Due Influenza [...] 75+ series) 11/20/2011 DEPRESSION SCREENING 07/02/2019 07/02/2018 INFLUENZA VACCINE (#1) 2025 , 03/10/2020, 04/21/2019, Additional history exists COVID-19 VACCINE ( season) 2025 04/10/2021, 08/10/2020, 07/13/2020 CREATININE LEVEL 07/18/2025 07/18/2024, [...] Procedure Name Priority Date/Time Associated Diagnosis Comments BASIC METABOLIC PANEL STAT 07/18/2024 5:30 PM EST from Last 3 Months or Most Recently Relevant to Health Maintenance Results * (ABNORMAL) Basic metabolic panel (07/18/2024 5:30 PM EST) SODIUM 136 133 - 146 mmol/L [facility] CHLORIDE 102 96 - 108 mmol/L [facility] POTASSIUM 4.7 3.3 - 5.1 mmol/L [facility] CO2 25 21 - 35 mmol/L [facility] BUN 28(H) 6 - 19 mg/dL [facility] CREATININE 1.00 0.5 - 1.5 mg/dL [facility] GLUCOSE 94 70 - 99 mg/dL [facility] CALCIUM 9.5 8.4 - 10.3 mg/dL [facility] EGFR 73 >59 mL/min/1.7 3m2 [facility] Comment:Estimated glomerular filtration rate calculated using the CKD-EPI refit equation. ANION GAP 14 10 - 20 mmol/L [facility] Blood 07/18/2024 5:30 PM EST 07/18/2024 5:33 PM EST us Hiro Arroyo MD LAB BLOOD ORDERABLES Final Result Performing Organization Address City/State/[facility] Co de Phone Number [facility] [address] [place] [address] from Last 3 Months or Most Recently Relevant to Health Maintenance Insurance [employer] [place] MEDICARE PPO BLUE REPLACEMENT MEDICARE PPO BLUE REPLACEMENT MEDICARE PPO BLUE REPLACEMENT MEDICARE PPO BLUE REPLACEMENT MEDICARE PPO BLUE REPLACEMENT MEDICARE PPO BLUE REPLACEMENT MEDICARE PPO BLUE REPLACEMENT MEDICARE PPO BLUE REPLACEMENT MEDICARE PPO BLUE REPLACEMENT MEDICARE PPO BLUE REPLACEMENT Care Teams Financial Institution President Relationship Specialty Start Date End Date Marvin Atkins DO [address] [address] PCP - General Family Medicine 07/18/24 Angel Menchaca MD [email or web address] Primary Oncologist Hematology and Oncology 11/28/20 Additional Source Comments The information contained in this document represents components of the legal health record. It is not the complete legal health record.[facility]
--- OUTSIDE RECORDS SUMMARY | 2025-02-24 13:57 | XMS_ITS | Encounter Summary ---
Author Organization [facility] Address [address] [place] [address] Phone Care Team Providers Care Miniature Set Builder Name Role Phone Angel Menchaca MD Unavailable Marvin Atkins DO Primary Care Provider Encounter Details Date Type Department Care Team (Late st Contact Info) Description 11/10/2024 Procedure Pass [facility], Ct Scan - [address] [address] Social History Tobacco Use Types Packs/Day Years [...] on file documented as of this encounter Functional Status * Calculated C-SSRS Risk Score (Lifetime/Recent) Answer Date of Assessment Author No Risk Indicated 11/10/2024 6:14 PM EDT Nisreen Bailey RN * [place] Suicide Severity Rating Scale (Screener/Recent Self-Report) Question Answer Date of Assessment Author 1. Wish to be (Past 1 Month) No 11/10/2024 6:14 PM EDT Sarika George RN 2. Non-Specific Active Suicidal Thoughts (Past 1 Month) No 11/10/2024 6:14 PM EDT Sarika George RN 6. Suicidal Behavior (Lifetime) No 11/10/2024 6:14 PM EDT Sarika George RN documented as of this encounter Plan of Treatment Not on file documented as of this encounter Visit Diagnoses Not on filedocumented in this encounter Additional Health Concerns Assessment Noted Time PHQ-2 Depression Total Score: 0 07/02/19 19 1:46 PM EST documented as of this encounter Care Teams Miniature Set Builder Relationship Specialty Start Date End Date [facility] [address] [address] PCP - General Family Medicine 07/18/24 Angel Menchaca MD [email or web address] Primary Oncologist Hematology and Oncology 11/28/20 documented as of this encounter Additional Source Comments The information contained in this document represents components of the legal health record. It is not the complete legal health record.[facility]
--- OUTSIDE RECORDS SUMMARY | 2025-02-24 13:57 | XMS_ITS | Encounter Summary ---
Author Organization [facility] Address [address] [place] [address] Phone Care Team Providers Care Social Media Marketing Manager Name Role Phone Angel Menchaca MD Unavailable Marvin Atkins DO Primary Care Provider Encounter Details Date Type Department Care Team (Late st Contact Info) Description 11/10/2024 Procedure Pass [facility], Ct Scan - [address] [address] Social History Tobacco Use Types Packs/Day Years [...] 6:14 PM EDT Nisreen Bailey RN * [place] Suicide Severity Rating Scale (Screener/Recent Self-Report) Question [...] documented as of this encounter Care Teams Social Media Marketing Manager Relationship Specialty Start Date End Date [facility] DO [facility] [address] [address] PCP - General Family Medicine 07/18/24 Angel Menchaca MD [email or web address] Primary Oncologist Hematology and Oncology 11/28/20 documented as of this encounter Additional Source Comments The information contained in this document represents components of the legal health record. It is not the complete legal health record.[facility]
== END 2025-02-24 12:22 | disposition home or self-care (01) ==
LOC: HO.HGI 11:37
PROVIDERS: PCP Family Medicine; Visit Provider Nurse Practitioner Family
DX: K21.9 Gastro-esophageal reflux disease without esophagitis (principal)
CPT/HCPCS: 99213

== ENCOUNTER → 2025-02-24 11:37 | Outpatient (BNVA) | payer MEDICARE, SELFPAY | PROVIDERS: PCP Family Medicine; Visit Provider Nurse Practitioner Family | DX: K21.9 Gastro-esophageal reflux disease without esophagitis (principal) | CPT/HCPCS: 99212 ==